=== PATIENT | male | born 1970 | race Caucasian/White ===

== ENCOUNTER 2017-09-06 15:36 | Emergency (ER) | payer OTHER ==
[~2017-09-06] VITALS: Ht 162.6 cm; Wt 82.0 kg
[2017-09-06 15:57] VITALS: BP 142/84; PULSE 74; RESP 18; TEMP 98.9; O2SAT 98
--- NOTE | 2017-09-06 16:27 | PD ---
HPI Chief Complaint: Fall Time Seen by Provider: 16:12 Travel History International Travel<30 days: No Contact w/Intl Traveler<30days: No Traveled to known affect area: No History of Present Illness HPI This patient is brought in for the fall. He fell backwards off of a scaffold about 5 foot to the ground which was cemented. He hit his head and does complain of headache. There was no LOC. He has some neck discomfort and upper back pain. Duration 1 hour. Symptom severity is moderate. He is ambulatory. No alleviating factors. No exacerbating factors. PFSH Social History Alcohol Use: No Tobacco Use: No Substance Use: No Allergies-Medications (Allergen,Severity, Reaction): Coded Allergies: No Known Allergies (Unverified , 09/06/17) Reported Meds & Prescriptions Reported Meds & Active Scripts Active No Active Prescriptions or Reported Medications Review of Systems General / Constitutional: No: Fever Eyes: No: Visual changes HENT: Positive: Headaches, Neck Pain Cardiovascular: No: Chest Pain or Discomfort Respiratory: No: Shortness of Breath Gastrointestinal: No: Abdominal Pain Genitourinary: No: Dysuria Musculoskeletal: Positive: Pain Skin: No Rash Neurologic: Positive: Headache, No: Weakness Psychiatric: No: Depression Endocrine: No: Polydipsia Hematologic/Lymphatic: No: Easy Bruising Physical Exam Narrative GENERAL: Well-nourished, well-developed patient in no apparent distress. SKIN: Focused skin assessment reveals no rash and nodules. Skin is Warm and dry. HEAD: Atraumatic. Normocephalic. EYES: Pupils equal and round. No scleral icterus. No injection or drainage. ENT: No nasal bleeding or discharge. Mucous membranes pink and moist. NECK: Trachea midline. No JVD. No bruising or deformity. CARDIOVASCULAR: Regular rate and rhythm. No murmur appreciated. RESPIRATORY: No accessory muscle use. Clear to auscultation. Breath sounds equal bilaterally. GASTROINTESTINAL: Abdomen soft, non-tender, nondistended. Hepatic and splenic margins not palpable. MUSCULOSKELETAL: No obvious deformities. No clubbing. No cyanosis. No edema. Some tenderness to the mid upper back without bruising or deformity. He is tender in the xiphoid process area without objective findings. NEUROLOGICAL: Awake and alert. No obvious cranial nerve deficits. Motor grossly within normal limits. Normal speech. PSYCHIATRIC: Appropriate mood and affect; insight and judgment normal. Data Data Last Documented VS Vital Signs Date Time Temp Pulse Resp B/P (MAP) Pulse Ox O2 Delivery O2 Flow Rate FiO2 09/06/17 15:57 98.9 74 18 142/84 (103) 98 MDM Medical Decision Making Medical Screen Exam Complete: Yes Emergency Medical Condition: Yes Medical Record Reviewed: Yes Differential Diagnosis Skull fracture, vertebral fracture, intracranial hemorrhage Narrative Course I have reviewed the patient's electronic medical record. I have ordered a workup to evaluate his injuries. Case will be checked out to the evening physician. Scripts No Active Prescriptions or Reported Meds Osmin Gage MD September 06, 2017 16:27
--- NOTE | 2017-09-06 17:01 | PD ---
Physical Exam Narrative Received sign out from previous team to follow up CT scans and reevaluate. Please see previous provider note for further details. 47yo M with no significant PMH here with c/o headache, neck pain and upper back pain s/p fall off the scaffold about [address] cervical spine showed no acute fracture. At C4-5 there is a suspected central disc protrusion with mild impression on the anterior surface of the cord. Discussed with neurosurgeon Dr. Hernandez who reviewed the images and recommend urgent neurosurgery follow up within 10-14 days. Explained to patient that he is not to work until he sees neurosurgery. Pt states he will follow up with Dr. Hernandez. Currently has no focal weakness or numbness. CXR showed no acute disease. CT brain negative. CT TS showed no fracture subluxation. Pt has no focal neurologic deficits. He is tender diffusely in posterior neck and upper back. Pt was not given any pain medication so given toradol and valium. Pt reevaluated at bedside and has lower lumbar pain and pain in his pelvis. CT LS and pelvis ordered. Labs reviewed, no leukocytosis. H/H normal. BMP unremarkable. Everything was explained using site interpreter [id number]. Pt reevaluated after morphine and pain has improved. CT LS showed no acute fracture. CT pelvis showed no acute fracture. Pt ambulating in the ED. Return precautions given. Data Data Last Documented VS Vital Signs Date Time Temp Pulse Resp B/P (MAP) Pulse Ox O2 Delivery O2 Flow Rate FiO2 09/06/17 15:57 98.9 74 18 142/84 (103) [address] Brain W/O Iv Contrast(Rout) (09/06/17 ) Ct Cerv Spine W/O Contrast (09/06/17 ) Ct Thor Spine W/O Contrast (09/06/17 ) Chest, Single Ap (09/06/17 ) Iv Access Insert/Monitor (09/06/17 16:45) Complete Blood Count With Diff (09/06/17 16:45) Basic Metabolic Panel (Bmp) (09/06/17 16:45) Ketorolac Inj (Toradol Inj) (09/06/17 18:30) Diazepam (Valium) (09/06/17 18:30) Ct Lumb Spine W/O Contrast (09/06/17 ) Ct Pelvis W/O Iv Contrast (09/06/17 ) Morphine Inj (Morphine Inj) (09/06/17 19:45) Morphine Inj (Morphine Inj) (09/06/17 20:30) Labs Laboratory Tests Test 09/06/17 16:55 White Blood Count 6.0 TH/MM3 Red Blood Count 4.91 MIL/MM3 Hemoglobin 15.9 GM/DL Hematocrit 46.0 % Mean Corpuscular Volume 93.7 FL Mean Corpuscular Hemoglobin 32.3 PG Mean Corpuscular Hemoglobin Concent 34.5 % Red Cell Distribution Width 13.1 % Platelet Count 186 TH/MM3 Mean Platelet Volume 9.2 FL Neutrophils (%) (Auto) 64.8 % Lymphocytes (%) (Auto) 21.0 % Monocytes (%) (Auto) 7.4 % Eosinophils (%) (Auto) 6.1 % Basophils (%) (Auto) 0.7 % Neutrophils # (Auto) 3.9 TH/MM3 Lymphocytes # (Auto) 1.3 TH/MM3 Monocytes # (Auto) 0.4 TH/MM3 Eosinophils # (Auto) 0.4 TH/MM3 Basophils # (Auto) 0.0 TH/MM3 CBC Comment DIFF FINAL Differential Comment Blood Urea Nitrogen 18 MG/DL Creatinine 0.86 MG/DL Random Glucose 130 MG/DL Calcium Level 8.9 MG/DL Sodium Level 143 MEQ/L Potassium Level 3.5 MEQ/L Chloride Level 108 MEQ/L Carbon Dioxide Level 24.8 MEQ/L Anion Gap 10 MEQ/L Estimat Glomerular Filtration Rate 96 ML/MIN MDM Supervised Visit with JAG: No Diagnosis Primary Impression: Protruded cervical disc Referrals: Rick Hernandez MD call for appointment Mild anterior cord compression at C4-5. Patient Instructions: General Instructions Departure Forms: Tests/Procedures Additional Instruction: Please call Dr. Hernandez's office tomorrow for an urgent appointment regarding the central disc protrusion with mild impression on the anterior surface of the cord at C4-5. Please do not work until you see Dr. Hernandez. Please return to the ED immediately if you have weakness or numbness or any other concerning symptoms. Med/Other Pt SpecificInfo: Prescription(s) given Scripts Acetaminophen (Tylenol) 325 Mg Tab 650 MG PO Q6H Y for PAIN SCALE 1 TO 4, #20 TAB 0 Refills Prov: Nathalia Gallardo DO 09/06/17 Disposition: 01 DISCHARGE HOME Condition: Stable Nathalia Gallardo DO September 06, 2017 17:01
[2017-09-06 17:27] LABS: AUTOMATED NEUTROPHIL # 3.9 TH/MM3 (1.8-7.7); BASOPHIL % 0.7 % (0.0-2.0); EOSINOPHIL # 0.4 TH/MM3 (0-0.4); EOSINOPHIL % 6.1 % (0.0-4.0); HEMOGLOBIN 15.9 GM/DL (13.0-17.0); LYMPHOCYTE # 1.3 TH/MM3 (1.0-4.8); MEAN CELL VOLUME 93.7 FL (80.0-100.0); MEAN CORPUSCULAR HEMOGLOBIN 32.3 PG (27.0-34.0); MEAN CORPUSCULAR HGB CONC 34.5 % (32.0-36.0); MEAN PLATELET VOLUME 9.2 FL (7.0-11.0); MONO % 7.4 % (0.0-8.0); MONOCYTE # 0.4 TH/MM3 (0-0.9); NEUT % 64.8 % (16.0-70.0); PLATELET COUNT 186 TH/MM3 (150-450); RED BLOOD COUNT 4.91 MIL/MM3 (4.50-5.90); RED CELL DISTRIBUTION WIDTH 13.1 % (11.6-17.2)
--- NOTE | 2017-09-06 17:39 | RADRPT ---
EXAM DATE/TIME: 09/06/2017 17:01 [facility] COMPARISON: No previous studies available for comparison. INDICATIONS : Trauma, fall from five feet off a scaffold. RADIATION DOSE: 56.35 CTDIvol (mGy) MEDICAL HISTORY : None SURGICAL HISTORY : None. ENCOUNTER: Initial ACUITY: 1 day PAIN SCALE: 8/10 LOCATION: Bilateral cranial TECHNIQUE: Multiple contiguous axial images were obtained of the head. Using automated exposure control and adj ustment of the mA and/or kV according to patient size, radiation dose was kept as low as reasonably a chievable to obtain optimal diagnostic quality images. DICOM format image data is available electro nically for review and comparison. FINDINGS: CEREBRUM: The ventricles are normal for age. No evidence of midline shift, mass lesion, hemorrhage or acute in farction. No extra-axial fluid collections are seen. POSTERIOR FOSSA: The cerebellum and brainstem are intact. The 4th ventricle is midline. The cerebellopontine angle i s unremarkable. EXTRACRANIAL: The visualized portion of the orbits is intact. SKULL: The calvaria is intact. No evidence of skull fracture. CONCLUSION: 1. No acute intracranial abnormalities. Gary Schmidt MD on September 06, 2017 at 17:36 Board Certified Radiologist. This report was verified electronically.
--- NOTE | 2017-09-06 17:46 | RADRPT ---
EXAM DATE/TIME: 09/06/2017 17:18 [facility] COMPARISON: No previous studies available for comparison. INDICATIONS : Chest pain after fall. MEDICAL HISTORY : None. SURGICAL HISTORY : None. ENCOUNTER: Initial ACUITY: 1 day PAIN SCORE: 5/10 LOCATION: middle chest. FINDINGS: A single view of the chest demonstrates the lungs to be symmetrically aerated without evidence of mas s, infiltrate or effusion. The cardiomediastinal contours are unremarkable. Osseous structures are intact. CONCLUSION: No acute disease. Gary Schmidt MD on September 06, 2017 at 17:44 Board Certified Radiologist. This report was verified electronically.
--- NOTE | 2017-09-06 17:54 | RADRPT ---
EXAM DATE/TIME: 09/06/2017 17:01 [facility] COMPARISON: No previous studies available for comparison. INDICATIONS : Trauma, Fall five feet off a scaffold RADIATION DOSE: 21.95 CTDIvol (mGy) MEDICAL HISTORY : None SURGICAL HISTORY : None. ENCOUNTER: Initial ACUITY: 1 day PAIN SCALE: 8/10 LOCATION: neck TECHNIQUE: Volumetric scanning of the cervical spine was performed. Multiplanar reconstructions in the sagittal, coronal and oblique axial planes were performed. Using automated exposure control and adjustment o f the mA and/or kV according to patient size, radiation dose was kept as low as reasonably achievable to obtain optimal diagnostic quality images. DICOM format image data is available electronically f or review and comparison. FINDINGS: VERTEBRAE: Normal vertebral body height. ALIGNMENT: No evidence of subluxation. C2-C3: The bony spinal canal is normal in size. No evidence of disc bulge or herniation. The neural forami na are bilaterally patent. C3-C4: The bony spinal canal is normal in size. No evidence of disc bulge or herniation. The neural forami na are bilaterally patent. C4-C5: Central disc protrusion with mild impression on anterior surface of the cord. C5-C6: The bony spinal canal is normal in size. No evidence of disc bulge or herniation. The neural forami na are bilaterally patent. C6-C7: The bony spinal canal is normal in size. No evidence of disc bulge or herniation. The neural forami na are bilaterally patent. C7-T1: The bony spinal canal is normal in size. No evidence of disc bulge or herniation. The neural forami na are bilaterally patent. CONCLUSION: 1. No acute fracture. At C4-5 there is a suspected central disc protrusion with mild impression on th e anterior surface of the cord. Gary Schmidt MD on September 06, 2017 at 17:48 Board Certified Radiologist. This report was verified electronically.
--- NOTE | 2017-09-06 18:09 | RADRPT ---
EXAM DATE/TIME: 09/06/2017 17:01 [facility] COMPARISON: No previous studies available for comparison. INDICATIONS : Trauma, fall five feet off a scaffold RADIATION DOSE: 21.95 CTDIvol (mGy) MEDICAL HISTORY : None SURGICAL HISTORY : None. ENCOUNTER: Initial ACUITY: 1 day PAIN SCALE: 8/10 LOCATION: Thoracic spine TECHNIQUE: Volumetric scanning of the thoracic spine was performed. Multiplanar reconstructions in the sagittal , coronal and oblique axial planes were performed. Using automated exposure control and adjustment o f the mA and/or kV according to patient size, radiation dose was kept as low as reasonably achievable to obtain optimal diagnostic quality images. DICOM format image data is available electronically f or review and comparison. FINDINGS: The vertebral bodies of the thoracic spine are in normal alignment without evidence of subluxation. Vertebral body height is maintained. No fractures are seen. T1-T2: Normal. T2-T3: The thecal sac has a normal diameter. No evidence of disc bulge or protrusion. T3-T4: The thecal sac has a normal diameter. No evidence of disc bulge or protrusion. T4-T5: The thecal sac has a normal diameter. No evidence of disc bulge or protrusion. T5-T6: The thecal sac has a normal diameter. No evidence of disc bulge or protrusion. T6-T7: The thecal sac has a normal diameter. No evidence of disc bulge or protrusion. T7-T8: The thecal sac has a normal diameter. No evidence of disc bulge or protrusion. T8-T9: The thecal sac has a normal diameter. No evidence of disc bulge or protrusion. T9-T10: The thecal sac has a normal diameter. No evidence of disc bulge or protrusion. T10-T11: The thecal sac has a normal diameter. No evidence of disc bulge or protrusion. T11-T12: The thecal sac has a normal diameter. No evidence of disc bulge or protrusion. T12-L1: The thecal sac has a normal diameter. No evidence of disc bulge or protrusion. CONCLUSION: No fracture subluxation. Willian Benedict MD on September 06, 2017 at 18:05 Board Certified Radiologist. This report was verified electronically.
[2017-09-06 18:19] LABS: BICARBONATE 24.8 MEQ/L (21.0-32.0); CALCIUM 8.9 MG/DL (8.5-10.1); CREATININE 0.86 MG/DL (0.60-1.30)
[2017-09-06] MEDS ORDERED: DIAZEPAM 5 MG TAB PO ONE (18:30)
[2017-09-06] MEDS ORDERED: KETOROLAC TROMETHAMINE 30 MG/ML (IVP) VIAL IV PUSH ONE (18:30)
[2017-09-06] MEDS ORDERED: MORPHINE SULFATE 4 MG/ML INJ IV PUSH ONE (19:45)
[2017-09-06] MEDS ORDERED: MORPHINE SULFATE 4 MG/ML INJ IM ONE (20:30)
--- NOTE | 2017-09-06 21:01 | RADRPT ---
EXAM DATE/TIME: 09/06/2017 19:58 [facility] COMPARISON: No previous studies available for comparison. INDICATIONS : Fall from scaffold RADIATION DOSE: 26.34 CTDIvol (mGy) MEDICAL HISTORY : None SURGICAL HISTORY : None. ENCOUNTER: Initial ACUITY: 1 day PAIN SCALE: 8/10 LOCATION: Lumbar TECHNIQUE: Volumetric scanning of the lumbar spine was performed. Multiplanar reconstructions in the sagittal, coronal and oblique axial planes were performed. Using automated exposure control and adjustment of the mA and/or kV according to patient size, radiation dose was kept as low as reasonably achievable t o obtain optimal diagnostic quality images. DICOM format image data is available electronically for review and comparison. FINDINGS: VERTEBRAE: Normal vertebral body height. Degenerative changes including anterior endplate osteophytes ALIGNMENT: No evidence of subluxation. T12-L1: The thecal sac has a normal diameter. No evidence of disc bulge or protrusion. The neural foramina are patent bilaterally. L1-L2: The thecal sac has a normal diameter. No evidence of disc bulge or protrusion. The neural foramina are patent bilaterally. L2-L3: The thecal sac has a normal diameter. No evidence of disc bulge or protrusion. The neural foramina are patent bilaterally. L3-L4: The thecal sac has a normal diameter. No evidence of disc bulge or protrusion. The neural foramina are patent bilaterally. L4-L5: Moderate broad-based bulge abuts the thecal sac without canal stenosis. The neural foramina are garrison nt bilaterally. L5-S1: Moderate broad-based bulge without canal stenosis. The neural foramina are patent bilaterally. CONCLUSION: 1. No acute fracture. 2. Degenerative changes. Willian Benedict MD on September 06, 2017 at 20:57 Board Certified Radiologist. This report was verified electronically.
--- NOTE | 2017-09-06 21:11 | RADRPT ---
EXAM DATE/TIME: 09/06/2017 19:58 [facility] COMPARISON: No previous studies available for comparison. INDICATIONS : Fell from scaffold ORAL CONTRAST: No oral contrast ingested. RADIATION DOSE: 26.84 CTDIvol (mGy) MEDICAL HISTORY : None SURGICAL HISTORY : None. ENCOUNTER: Initial ACUITY: 1 day PAIN SCALE: 8/10 LOCATION: pelvis TECHNIQUE: Volumetric scanning of the pelvis was performed. Using automated exposure control and adjustment of the mA and/or kV according to patient size, radiation dose was kept as low as reasonably achievable t o obtain optimal diagnostic quality images. DICOM format image data is available electronically for review and comparison. FINDINGS: BOWEL/MESENTERY: The visualized small and large bowel demonstrate no acute abnormality. There is no free fluid. BLADDER: There is no wall thickening or mass. RETROPERITONEUM: There is no aneurysm or lymphadenopathy. REPRODUCTIVE: Within normal limits. INGUINAL: There is no lymphadenopathy or hernia. MUSCULOSKELETAL: Within normal limits for patient age. CONCLUSION: No acute fracture. Willian Benedict MD on September 06, 2017 at 21:08 Board Certified Radiologist. This report was verified electronically.
[2017-09-06] MEDS ORDERED: TYLE325T PO (21:24)
== END 2017-09-06 21:33 | disposition home or self-care (01) ==
LOC: NEPD 15:36
DX: M50.221 Other cervical disc displacement at C4-C5 level (principal); R51 Headache
CPT/HCPCS: 70450; 71045; 72125; 72128; 72131; 72192; 80048; 85025; 96372; 96374; 99285; J1885; J2270